=== PATIENT | male | born 1960 | race Caucasian/White ===

== ENCOUNTER 2018-04-19 06:29 | Day surgery (SDC) | payer BC ==
--- NOTE | 2018-04-19 07:08 | PCM.PREANE ---
Preanesthetic Assessment - Anesthesia/Transfusion/Family Hx Anesthesia History: Prior Anesthesia Without Reaction (back surgery as a child, and ganglion excision: no anesthesia issues) Family History of Anesthesia Reaction: No Transfusion History: No Prior Transfusion(s) - Review of Systems General: No Symptoms (obese, dental veneers upper front) Pulmonary: No Symptoms (JUAN uses cpap every night according to patient and ) Cardiovascular: No Symptoms (hypertension and increased cholesterol) Gastrointestinal: No Symptoms (denies any GERD) Neurological: No Symptoms Other: Reports: None - Physical Assessment NPO Status Date: 04/19/18 NPO Status Time: 00:00 Pulse: 77 O2 Sat by Pulse Oximetry: 95 Respiratory Rate: 16 Blood Pressure: 136/94 Temperature: 36.6 C Height: 1.8 m Weight: 137.438 kg ASA Class: 3 Mental Status: Alert & Oriented x3 Airway Class: Mallampati = 2 Dentition: Reports: Normal Dentition (upper front veneers) Thyro-Mental Finger Breadths: 2 Mouth Opening Finger Breadths: 3 ROM/Head Extension: Full Lungs: Clear to Auscultation, Normal Respiratory Effort Cardiovascular: Regular Rate, Regular Rhythm, No Murmurs - Allergies Allergies/Adverse Reactions: Allergies Allergy/AdvReac Type Severity Reaction Status Date / Time No Known Allergies Allergy Verified 04/14/18 12:56 - Blood Blood Available: No Product(s) Available: None - Anesthesia Plan Pre-Op Medication Ordered: None - Acknowledgements Anesthesia Type Planned: MAC (Plan: MAC with GA backup. Will keep till wide awake before sending home (JUAN). JUAN sheet given to patient. present throughout. All questions answered. Consent signed.) Pt an Appropriate Candidate for the Planned Anesthesia: Yes Alternatives and Risks of Anesthesia Discussed w Pt/Guardian: Yes Pt/Guardian Understands and Agrees with Anesthesia Plan: Yes PreAnesthesia Questionnaire HEENT History: Reports: Other (See Below) Other HEENT History: wears glasses occasionally, had dental veneers Cardiovascular History: Reports: High Cholesterol, Hypertension Respiratory History: Reports: Sleep Apnea Other Respiratory History: uses CPAP Gastrointestinal History: Reports: None Genitourinary History: Reports: None Musculoskeletal History: Reports: Fracture Other Musculoskeletal History: hx of fx left arm as a child Neurological History: Reports: None Psychiatric History: Reports: None Endocrine/Metabolic History: Reports: Obesity/BMI 30+ Hematologic History: Reports: None Immunologic History: Reports: None Oncologic (Cancer) History: Reports: None Dermatologic History: Reports: None - Past Surgical History Head Surgeries/Procedures: Reports: None Neurological Surgical History: Reports: Laminectomy, Lumbar Spine Musculoskeletal Surgical History: Reports: Ganglion Cyst - SUBSTANCE USE Smoking Status *Q: Never Smoker Recreational Drug Use History: No - HOME MEDS Home Medications: Home Meds Losartan/Hydrochlorothiazide [Losartan-HCTZ 50-12.5 MG] 1 tab PO DAILY 04/14/18 [History] atorvaSTATin Calcium [Atorvastatin Calcium] 10 mg PO DAILY 04/14/18 [History] - CURRENT (IN HOUSE) MEDS Current Meds: Current Medications Hydrocodone Bitart/Acetaminophen ([place] 325-5 Mg) 1 tab PO Q4H PRN PRN Reason: Pain Bupivacaine HCl/Epinephrine Bitart (Marcaine 0.25%/Epinephrine 1:200,000) 10 ml INJECT ONETIME ONE Stop: 04/19/18 08:01 Cefazolin Sodium/Dextrose 2 gm (/ Premix) 50 mls @ 100 mls/hr IV ONETIME ONE Stop: 04/19/18 08:29 Lactated Ringer's (Ringers, Lactated) 1,000 mls @ 125 mls/hr IV ASDIRECTED [facility]
[2018-04-19] MEDS ORDERED: Bupivacaine 25%/EPINEPHrine/PF 30 ML ONE (07:19)
[2018-04-19] MEDS ORDERED: Lidocaine 2% 5 ML SDV ONE (07:24)
[2018-04-19] MEDS ORDERED: Propofol 200 MG/20 ML SDV ONE (07:24)
[2018-04-19] MEDS ORDERED: fentaNYL 100 MCG/2 ML SDV ONE (07:24)
[2018-04-19] MEDS ORDERED: Acetaminophen/HYDROcodone 325-5 MG Tab PO PRN (08:00)
[2018-04-19] MEDS ORDERED: Bupivacaine 0.25%/EPINEPHrine 1:200,000 10 ML SDV INJECT ONE (08:00)
[2018-04-19] MEDS ORDERED: ceFAZolin 2 GM in Premix Bag 1 BAG IV ONE (08:00)
[2018-04-19] MEDS ORDERED: Lactated Ringers 1,000 ML IV SCH (08:00)
[2018-04-19] MEDS ORDERED: Sodium Chloride 0.9% 20 ML ONE (08:09)
[2018-04-19] MEDS ORDERED: ceFAZolin 1 GM Vial ONE (08:09)
--- NOTE | 2018-04-19 08:40 | PCM.POSTAN ---
POST ANESTHESIA ASSESSMENT - MENTAL STATUS Mental Status: Alert, Oriented - VITAL SIGNS Pulse Rate: 74 SaO2: 96 Resp Rate: 20 Blood Pressure: 128/65 - RESPIRATORY Respiratory Status: Respiratory Rate WNL, Airway Patent, O2 Saturation Stable - CARDIOVASCULAR CV Status: Pulse Rate WNL, Blood Pressure Stable - GASTROINTESTINAL GI Status: No Symptoms - PAIN Pain Score: 0 (hand is numb from local anesthetic) - POST OP HYDRATION Hydration Status: Adequate & Stable - OBSERVATIONS Free Text/Narrative:: Straight to room from OR> Doing well. Awake and alert.
--- NOTE | 2018-04-19 11:01 | PCM48HPAN ---
Post Anesthesia Note - EVALUATION WITHIN 48HRS OF ANESTHETIC Vital Signs in Normal Range: Yes Patient Participated in Evaluation: Yes Respiratory Function Stable: Yes Airway Patent: Yes Cardiovascular Function Stable: Yes Hydration Status Stable: Yes Pain Control Satisfactory: Yes Nausea and Vomiting Control Satisfactory: Yes Pulse Rate: 74 SaO2: 98 Resp Rate: 20 Temperature: 36.6 C Blood Pressure: 128/65 - COMMENTS/OBSERVATIONS Free Text/Narrative:: awake, alert, vitals stable. Good post op phase II recovery.
--- NOTE | 2018-04-22 08:59 | PCM.OPNOTE ---
- General Post-Op/Procedure Note Date of Surgery/Procedure: 04/19/18 Operative Procedure(s): left carpal tunnel release Pre Op Diagnosis: left carpal tunnel Post-Op Diagnosis: Same Anesthesia Technique: Local, MAC Primary Surgeon: Arianna Pink Salvage Inspector: Xochilt Estes Complications: None Condition: Good
--- NOTE | 2018-04-24 19:58 | OR ---
SURGEON: FAVIO HICKEY MD DATE OF PROCEDURE: 04/19/2018 PREOPERATIVE DIAGNOSIS: Left carpal tunnel syndrome. POSTOPERATIVE DIAGNOSIS: Left carpal tunnel syndrome. PROCEDURE: Left carpal tunnel release. INTERNATIONAL NURSE: TYLER Martin. ANESTHESIA: Local MAC. INDICATIONS: Mr. Montes De Oca is a 57-year-old gentleman seen for left carpal tunnel release today. He has failed conservative management and risks and benefits of proceeding with carpal tunnel release were discussed with him. PROCEDURE IN DETAIL: After informed consent was obtained and placed on the chart, the patient was brought to the operating theater and laid in supine position. After adequate local MAC anesthesia was obtained, the area was prepped and draped and a time- out was completed to confirm side and site. Attention was then paid to #15 blade was used to dissect through the skin and subcutaneous tissues after exsanguination and insufflation of the tourniquet to 200 mmHg. After breach of the ligament, dissection was carried distally and proximally under direct visualization until complete release. The wound was then copiously irrigated and the skin was closed using 5-0 nylon stitch in a horizontal mattress fashion. The patient tolerated this well. All counts and needles were correct at the end of the case. FOLLOWUP INSTRUCTION: Wounds were dressed with Xeroform fluffs and a Kerlix gauze and a 2-inch Mk wrap. The patient will see us in 2 weeks, sooner if any problems, questions, or concerns. HEGGTHE / MODL /[id number]
== END 2018-04-19 09:00 | disposition home or self-care (01) ==
LOC: MW.SDS 06:29
PROVIDERS: ATTEND Plastic Surgery
DX: G56.02 Carpal tunnel syndrome, left upper limb (principal); I10 Essential (primary) hypertension; E78.00 Pure hypercholesterolemia, unspecified; G47.33 Obstructive sleep apnea (adult) (pediatric); Z99.89 Dependence on other enabling machines and devices; E66.9 Obesity, unspecified; Z68.41 Body mass index [BMI] 40.0-44.9, adult; Z79.899 Other long term (current) drug therapy
CPT/HCPCS: 64721; J0690; J2704; J3010; J7120; 01810

== ENCOUNTER 2021-10-21 06:21 | Emergency (ER) | payer BC ==
[2021-10-21] MEDS: Acetaminophen 325 MG Tab PO ONE (07:13)
[2021-10-21] MEDS: Ibuprofen 400 MG Tab PO ONE (07:14)
== END 2021-10-21 08:43 | disposition home or self-care (01) ==
LOC: MW.ED 06:21
DX: U07.1 COVID-19 (principal); E78.00 Pure hypercholesterolemia, unspecified; I10 Essential (primary) hypertension; E66.9 Obesity, unspecified; Z68.38 Body mass index [BMI] 38.0-38.9, adult; Z28.310 Unvaccinated for COVID-19; Z79.899 Other long term (current) drug therapy
CPT/HCPCS: 71045; 87635; 99285; A9270; 99283; U0002

== ENCOUNTER 2022-03-16 19:32 | Emergency (ER) | payer BC ==
[2022-03-16] MEDS ORDERED: Lidocaine 2% Viscous Solution 15 ML UD PO PRN (23:14)
[2022-03-16] MEDS ORDERED: Ketorolac 30 MG/ML SDV IM STA (23:14)
[2022-03-16] MEDS ORDERED: Amoxicillin/Clavulanate K 875-125 MG Tab PO STA (23:43)
== END 2022-03-16 23:52 | disposition home or self-care (01) ==
LOC: MW.ED 19:32
DX: K04.7 Periapical abscess without sinus (principal); K02.9 Dental caries, unspecified; E78.00 Pure hypercholesterolemia, unspecified; I10 Essential (primary) hypertension; E66.9 Obesity, unspecified; Z68.41 Body mass index [BMI] 40.0-44.9, adult; Z79.899 Other long term (current) drug therapy
CPT/HCPCS: 96372; 99282; A9270; J1885; 99283

== ENCOUNTER 2022-12-08 06:35 | Inpatient (IN) | payer BC ==
[~2022-12-08 06:35] MED LIST: Famotidine 20 MG/2 ML SDV IVPUSH SCH; Famotidine 20 MG/2 ML SDV ONE; Lactated Ringers 1,000 ML IV SCH; Scopolamine 1.5 MG Transdermal Patch TRDERM SCH
[2022-12-08] MEDS ORDERED: Ropivacaine 49.25 ML, Ketorolac 30 MG, EPINEPHrine 0.5 MG, cloNIDine 80 MCG in Sodium C... INJECT SCH (07:00)
[2022-12-08] MEDS ORDERED: Tranexamic Acid IN NACL,ISO-OS 1,000 MG in Premix Bag 1 BAG IV SCH ×2 (07:00)
[2022-12-08] MEDS ORDERED: fentaNYL 50 MCG/ML SDV IVPUSH PRN (07:06)
[2022-12-08] MEDS ORDERED: HYDROmorphone 1 MG/ML Syringe IVPUSH PRN (07:06)
[2022-12-08] MEDS ORDERED: Naloxone 0.4 MG/ML SDV IVPUSH PRN (07:06)
[2022-12-08] MEDS ORDERED: Albuterol 0.083% 2.5 MG/3 ML Neb Soln NEB PRN (07:06)
[2022-12-08] MEDS ORDERED: Morphine 2 MG/ML SYRINGE IVPUSH PRN (07:06)
[2022-12-08] MEDS ORDERED: Metoclopramide 10 MG/2 ML SDV IVPUSH PRN (07:06)
[2022-12-08] MEDS ORDERED: droPERidol 5 MG/2 ML SDV IVPUSH PRN (07:06)
[2022-12-08] MEDS ORDERED: Ondansetron 4 MG/2 ML SDV IVPUSH PRN ×2 (07:06→11:04)
[2022-12-08] MEDS ORDERED: ceFAZolin 2 GM Vial ONE (07:11)
[2022-12-08] MEDS ORDERED: ceFAZolin 1 GM Vial ONE (07:11)
[2022-12-08] MEDS ORDERED: Midazolam 1 MG/ML 2 ML SDV ONE (07:12)
[2022-12-08] MEDS ORDERED: propofoL 50 ML ONE ×3 (07:12→09:36)
[2022-12-08] MEDS ORDERED: Lidocaine 1% 5 ML VIAL ONE (07:12)
[2022-12-08] MEDS ORDERED: Phenylephrine 1% 10 MG/ML SDV ONE (07:12)
[2022-12-08] MEDS ORDERED: Tranexamic Acid 1,000 MG/10 ML Vial ONE (07:12)
[2022-12-08] MEDS ORDERED: fentaNYL 100 MCG/2 ML SDV ONE (07:12)
[2022-12-08] MEDS ORDERED: ePHEDrine 50 MG/ML SDV ONE (08:36)
[2022-12-08] MEDS ORDERED: Propofol 200 MG/20 ML SDV ONE (10:30)
[2022-12-08] MEDS ORDERED: Aluminum Hydroxide/Magnesium Hydroxide/Simethicone XS Susp 30 ML Cup PO PRN (11:04)
[2022-12-08] MEDS ORDERED: diphenhydrAMINE 25 MG Cap PO PRN (11:04)
[2022-12-08] MEDS ORDERED: traMADol 50 MG Tab PO PRN (11:04)
[2022-12-08] MEDS ORDERED: Sodium Chloride 0.9% 2.5 ML Syringe FLUSH PRN (11:04)
[2022-12-08] MEDS ORDERED: Sodium Chloride 0.9% 10 ML Syringe FLUSH PRN (11:04)
[2022-12-08] MEDS: Ketorolac 30 MG/ML SDV IVPUSH SCH ×3 (12:15→23:52)
[2022-12-08] MEDS: Acetaminophen 325 MG Tab PO SCH ×4 (12:22→23:52)
[2022-12-08 12:33] LABS: BASOPHILS PERCENT AUTO 0.1 % (0.0-1.5); EOSINOPHILS ABSOLUTE AUTO 0.1 K/uL (0.0-0.7); EOSINOPHILS PERCENT AUTO 1.1 % (0.0-7.0); HEMATOCRIT 40.6 % (38.0-50.0); HEMOGLOBIN 13.2 g/dL (13.0-17.0); LYMPHOCYTES ABSOLUTE AUTO 0.9 K/uL (0.6-2.4); MEAN CORPUSCULAR HEMOGLOBIN 30.6 pg (27.0-32.0); MEAN CORPUSCULAR HGB CONC 32.5 g/dL (31.0-37.0); MONOCYTES ABSOLUTE AUTO 0.9 K/uL (0.0-0.8); MONOCYTES PERCENT AUTO 9.2 % (0.0-15.0); NEUTROPHILS ABSOLUTE AUTO 7.5 K/uL (1.4-5.7); NEUTROPHILS PERCENT AUTO 79.6 % (48.0-80.0); NRBC ABSOLUTE 0 K/uL; PLATELET COUNT,PLT 193 K/uL (150-400); RED BLOOD CELL COUNT 4.32 M/uL (4.50-5.90); WHITE BLOOD CELL COUNT,WBC 9.37 K/uL (4.0-11.0)
[2022-12-08 13:02] LABS: CALCIUM 8.8 mg/dL (8.5-10.1); CARBON DIOXIDE,CO2 30.2 mmol/L (21.0-32.0); CREATININE 1.2 mg/dL (0.8-1.3); EST CRCL DRUG DOSING (CG) 68.85 mL/min; MAGNESIUM 1.8 mg/dL (1.8-2.4); POTASSIUM,K 4.2 mmol/L (3.5-5.1)
[2022-12-08] MEDS: oxyCODONE 5 MG Tab PO PRN ×2 (14:11→20:04)
[2022-12-08] MEDS: ceFAZolin 2 GM in Sodium Chloride 0.9% 50 ML IV SCH ×4 (16:12→23:54)
[2022-12-08] MEDS: Morphine 2 MG/ML SYRINGE IVPUSH PRN ×2 (17:55→21:25)
[2022-12-08] MEDS: Aspirin 325 MG Tab PO SCH (20:04)
[2022-12-08] MEDS: Docusate Sodium 100 MG Cap PO SCH (21:26)
[2022-12-09] MEDS: Morphine 2 MG/ML SYRINGE IVPUSH PRN ×2 (01:31→09:55)
[2022-12-09] MEDS: Acetaminophen 325 MG Tab PO SCH ×3 (03:48→11:05)
[2022-12-09] MEDS: oxyCODONE 5 MG Tab PO PRN ×2 (05:11→09:17)
[2022-12-09 05:34] LABS: HEMATOCRIT 36.7 % (38.0-50.0); HEMOGLOBIN 11.9 g/dL (13.0-17.0)
[2022-12-09 05:52] LABS: CALCIUM 7.9 mg/dL (8.5-10.1); CARBON DIOXIDE,CO2 28.6 mmol/L (21.0-32.0); CREATININE 1.1 mg/dL (0.8-1.3); EST CRCL DRUG DOSING (CG) 75.11 mL/min; MAGNESIUM 1.7 mg/dL (1.8-2.4); POTASSIUM,K 3.7 mmol/L (3.5-5.1)
[2022-12-09] MEDS: ceFAZolin 2 GM in Sodium Chloride 0.9% 50 ML IV SCH (07:30)
[2022-12-09] MEDS ORDERED: Magnesium Sulfate/Water 2 GM in Premix Bag 1 BAG IV ONE (08:14)
[2022-12-09] MEDS ORDERED: Famotidine 20 MG Tab PO SCH (09:00)
[2022-12-09] MEDS ORDERED: Hydrochlorothiazide 12.5 MG Cap PO SCH (09:00)
[2022-12-09] MEDS ORDERED: Polyethylene Glycol 3350 Powder 17 GM Packet PO SCH (09:00)
[2022-12-09] MEDS ORDERED: Losartan 50 MG Tab PO SCH (09:00)
[2022-12-09] MEDS ORDERED: atorvaSTATin 10 MG Tab PO SCH (09:00)
[2022-12-09] MEDS: Aspirin 325 MG Tab PO SCH (09:44)
[2022-12-09] MEDS: Docusate Sodium 100 MG Cap PO SCH (09:44)
[2022-12-09] MEDS ORDERED: Ibuprofen 800 MG Tab PO SCH (11:00)
== END 2022-12-09 12:30 | disposition home or self-care (01) | DRG 324 ==
LOC: MW.SDS 06:35 → MW.MS 06:38 → EDSTATUS 08:00 → MW.MS 11:01 → MW.SDS 11:01
PROVIDERS: ADMIT Orthopaedic Surgery; ATTEND Orthopaedic Surgery
PROC: 0SRB06Z Replacement of Left Hip Joint with Oxidized Zirconium on Polyethylene Synthetic Substitute, Open Approach (ICD-10-PCS; principal; 2022-12-08)
DX: M16.12 Unilateral primary osteoarthritis, left hip (principal); I10 Essential (primary) hypertension; G47.33 Obstructive sleep apnea (adult) (pediatric); M25.852 Other specified joint disorders, left hip; E78.00 Pure hypercholesterolemia, unspecified; Q74.2 Other congenital malformations of lower limb(s), including pelvic girdle; Z79.82 Long term (current) use of aspirin; Z79.899 Other long term (current) drug therapy; Z98.890 Other specified postprocedural states; Z98.1 Arthrodesis status
CPT/HCPCS: 36415; 73501-26-LT; 73501-LT; 80048; 83735; 85014; 85018; 85025; 86850; 86900; 86901; 97162-GP; 97530-GP; A9270-GY; J0131; J0171; J0690; J0735; J1885; J2250; J2270; J2370; J2704; J2795; J3010; J3475; J3490; J7120